=== PATIENT | male | born 1955 | race African-American/Black ===

== ENCOUNTER 2024-03-03 05:11 | Emergency (ER) | payer MEDICARE, MEDICAID ==
[~2024-03-03] VITALS: Ht 182.9 cm; Wt 79.4 kg
[2024-03-03] MEDS ORDERED: EZET10TA15 PO (05:37)
[2024-03-03] MEDS ORDERED: EMPA25TA PO (05:37)
[2024-03-03] MEDS ORDERED: METO100T14 PO (05:37)
[2024-03-03] MEDS ORDERED: ATOR80TA PO (05:37)
[2024-03-03] MEDS ORDERED: SEMA7TAB (05:37)
[2024-03-03] MEDS ORDERED: CLOP75TA33 PO (05:37)
[2024-03-03] MEDS ORDERED: CEPH500T PO (05:37)
[2024-03-03] MEDS ORDERED: LOSA25TA27 PO (05:37)
[2024-03-03] MEDS ORDERED: ORGOVYX PO (05:39)
[2024-03-03 05:56] LABS: BASOPHILS % (AUTO) 0.6 % (0.0-2.0); EOSINOPHILS % (AUTO) 0.6 % (0.0-7.0); HEMATOCRIT 43.4 % (36.7-47.1); HEMOGLOBIN 14.5 g/dL (12.5-16.3); LYMPHOCYTES % (AUTO) 23.5 % (20.5-51.5); MEAN CORPUSCULAR HEMOGLOBIN 29.2 uug (23.8-33.4); MEAN CORPUSCULAR HGB CONC 33 g/dL (32.5-36.3); MEAN CORPUSCULAR VOLUME 87.6 fL (73.0-96.2); MONOCYTES # (AUTO) 0.3 K/uL (0.1-1.30); MONOCYTES % (AUTO) 7.2 % (0.0-11.0); NEUTROPHILS % (AUTO) 68.1 % (38.5-71.5); PLATELET COUNT (AUTO) 259 K/uL (152-348); RED BLOOD CELL COUNT(AUTO) 4.95 MIL/uL (4.06-5.63); RED CELL DISTRIBUTION WIDTH 15.1 % (12.1-16.2); WHITE BLOOD COUNT (AUTO) 4.4 K/uL (3.6-10.2)
[2024-03-03 06:11] LABS: ALBUMIN 4.2 g/dL (3.4-5.0); BILIRUBIN,DIRECT 0.1 mg/dL (0.0-0.2); BILIRUBIN,TOTAL 0.4 mg/dL (0.2-1.0); CALCIUM 9.9 mg/dL (8.5-10.1); CREATININE 1.5 mg/dL (0.6-1.3); POTASSIUM 3.6 mmol/L (3.5-5.1); TOTAL PROTEIN, SERUM 8.1 g/dL (6.4-8.2)
[2024-03-03 06:50] LABS: *BILIRUBIN,URIN NEGATIVE (NEGATIVE); *BLOOD, URINE 3+ (NEGATIVE); *CLARITY,URINE SLIGHTLY CLOUDY (CLEAR); *COLOR,URINE RED (YELLOW); *KETONES,URINE NEGATIVE (NEGATIVE); *PROTEIN,URINE 2+ (NEGATIVE); *UROBILINOGEN,URINE 0.2 E.U./dl (NORMAL); LEUKOCYTE ESTERASE ,URINE NEGATIVE (NEGATIVE); NITRITE, URINE NEGATIVE (NEGATIVE); PH,URINE 5.5 (5.0-8.0); UGLUCOSE 3+ (NEGATIVE)
[2024-03-03 06:56] LABS: RBC,URINE 80-100 /HPF (0-3)
[2024-03-03 06:57] LABS: BACTERIA,URINE FEW /HPF (NONE SEEN); WBC,URINE 0-3 /HPF (0-3)
[2024-03-03] MEDS ORDERED: TRAN650T2 PO (08:26)
[2024-03-03 08:35] VITALS: BP 130/88; TEMP 98; O2SAT 97
[2024-03-03 13:58] LABS: FREE PSA 0.03 ng/mL (0.00-45); PROSTATE SPECIFIC ANTIGEN < 4.00 ng/mL (0.00-4.00)
[2024-03-04 15:09] LABS: *TESTOSTERONE, SERUM 17 ng/dL (264-916)
== END 2024-03-03 08:36 | disposition home or self-care (01) ==
LOC: ER 05:22
DX: R31.0 Gross hematuria (principal); C61 Malignant neoplasm of prostate; E11.9 Type 2 diabetes mellitus without complications; E78.5 Hyperlipidemia, unspecified; Z85.46 Personal history of malignant neoplasm of prostate; Z87.891 Personal history of nicotine dependence; Z79.899 Other long term (current) drug therapy; Z88.8 Allergy status to other drugs, medicaments and biological substances
CPT/HCPCS: 36415; 84153; 84403; 85025; 85730; A4606; A4663